=== PATIENT | female | born 1950 | race Caucasian/White ===

== ENCOUNTER → 2016-06-15 | Outpatient (CLI) | payer MEDICARE, BC ==
[~2016-06-15] MED LIST: ASPIRIN81 M1 PO; AZOR 5/40 MG TA1 TAB PO; BENADRYL PO; BENADRYL25 MG; CALCIUM + D 6001 TA1 PO; CALCIUM1 TAB.CHEW PO; CENTURY CARDIO1 EACH PO; CERTAGEN PO; FLONASE 0.05% N16 GM; LEVOTHROID88 MCG; LEVOTHROID88 MCG PO; LIPITOR PO; LISINOPRIL PO; LOTREL 5/401 CAP PO; MEDI-MECLIZINE25 M1 PO; NEXIUM PO; OMEPRAZOLE20 M1 PO; PARLODEL2.5 MG PO; PRAVACHOL20 MG; PRAVACHOL20 MG PO; PRAVASTATIN SOD40 MG PO; PRILOSEC20 MG PO; STOOL SOFTENER100 M1 PO; SYNTHROID PO; SYNTHROID0.1 MG PO; TENORMIN25 M1 PO; TIROSINT100 MCG PO; ZITHROMAX500 MG PO; ZYRTEC10 M2 PO
--- NOTE | ~2016-06-15 | MY11 ---
[facility] A Service of [facility] RADIOLOGY TEXT RESULTS PATIENT: NUHA NOLASCO LOCATION: [facility] : 48 UNIT #: [id number] AGE: [address]: Harmony Doss MD SEX: F ORDER DR: [id number] [facility] [address]. [place], [place] [address] [id number] O MR#: [id number] Acc #: [id number] NAME: NUHA NOLASCO : 1950 SEX: F STUDY DATE/TIME: 06/15/2016 11:40 UNIT: [facility] ROOM: STUDY DESCRIPTION: MY Mammogram Screening Dig Cipriano Attending Physician: Harmony Doss M.D. Ordering Physician: Harmony Doss M.D. Primary Care Physician: Harmony Doss M.D. MEDICAL IMAGING REPORT This report is preliminary unless electronic signature is present EXAM Digital screening mammogram 06/15/2016. HISTORY 65-year-old woman; positive family history, grandmother. Prior bilateral breast excisional biopsies. Annual screening. COMPARISON Comparison mammograms date to 07/14/2010 with most recent 06/14/2015. FINDINGS Digital imaging of each breast was completed utilizing screening protocol. Review includes FDA-approved CAD device. Breast parenchyma is fatty replaced. Benign calcifications are noted in each breast. Image-guided biopsy marker projects, central right breast location. I see no developing mass. There are no interval occurring microcalcifications and no suspicious architectural deformity. IMPRESSION Stable benign mammogram. Annual screening recommended. Patients over the age of 40 are entered into a reminder system with target due date for the next mammogram. A result letter will also be sent to the patient. BIRADS: 2 Benign finding. Dictated by... Mauro Vasques M.D. THIS IS AN ELECTRONICALLY VERIFIED REPORT [facility] A Service of [facility] RADIOLOGY TEXT RESULTS PATIENT: NUHA NOLASCO LOCATION: [facility] : 48 UNIT #: [id number] AGE: [address]: Harmony Doss MD SEX: F ORDER DR: Mauro Vasques M.D. at 06/16/2016 8:08 AM TEJA/nimco TD: 06/15/2016 16:01 JOB #: [id number] MEDICAL IMAGING REPORT Page 1 of 1 COPY
== END | disposition home or self-care (01) ==
LOC: CWCC 11:11
DX: Z12.31 Encounter for screening mammogram for malignant neoplasm of breast (principal); Z80.3 Family history of malignant neoplasm of breast; Z98.890 Other specified postprocedural states
CPT/HCPCS: G0202